=== PATIENT | female | born 1945 | race Caucasian/White ===

== ENCOUNTER → 2025-08-31 10:13 | Outpatient (REF) | payer MEDICARE, SELFPAY ==
[2025-08-31 11:03] LABS: Hematocrit 40.0 % (37.0-47.0); Hemoglobin 13.1 g/dL (12.0-16.0); Mean Corp Hgb Conc. 32.8 g/dL (33.0-37.0); Mean Corpuscular Volume 90.1 fL (81.0-99.0); Nucleated Red Blood Cells % 0 %; Platelet Count 277 10^3/uL (130-400); Red Cell Dist. Width 13.4 % (11.5-14.5)
[2025-08-31 11:17] LABS: INR 1.17; PT 15.2 Sec (11.4-14.6)
[2025-08-31 11:45] LABS: ALT (SGPT) 16 U/L (0-35); AST (SGOT) 21 U/L (14-36); Albumin 4.1 g/dl (3.5-5.0); Alkaline Phosphatase 59 U/L (38-126); Blood Urea Nitrogen 15 mg/dl (7-17); Calcium 9.1 mg/dl (8.4-10.2); Carbon Dioxide 31 mmol/L (22-30); Chloride 108 mmol/L (98-107); Glucose 85 mg/dl (70-99); Magnesium 2.1 mg/dl (1.6-2.3); Potassium 4.3 mmol/L (3.5-5.1); Sodium 143 mmol/L (135-145); Total Protein 6.7 g/dl (6.3-8.2); eGFR > 60.00
== END ==
LOC: SDSPAT 10:13
PROVIDERS: ATTENDING PHYSICIAN Internal Medicine Cardiovascular Disease; FAMILY PHYSICIAN Family Medicine; OTHER PHYSICIAN Internal Medicine
DX: I48.0 Paroxysmal atrial fibrillation (principal)
CPT/HCPCS: 36415; 75572; 80053; 83735; 85025; 85610; 86850; 86900; 86901; 93005; Q9967

== ENCOUNTER 2025-09-07 07:01 | Day surgery (SDC) | payer MEDICARE, SELFPAY ==
[2025-08-31 10:31] VITALS: BMI 27.9
--- NOTE | 2025-09-01 13:29 | W.PN.UPDATE ---
Update Note
Progress Note Update
CT: 2 pulmonary nodules are demonstrated measuring up to 3.7 mm. --Dr Tushar Davis and patient made aware
[2025-09-07] VITALS (22 sets, daily range): BP systolic 116–164; BP diastolic 56–74; BMI 27.9
[2025-09-07 08:59] LABS: ACT-LR - POC 213 Seconds (116-155)
--- NOTE | 2025-09-07 09:19 | ITS.CL.ABL ---
Paper Handler - Ablation
Ablation
Procedure Report:
ELECTROPHYSIOLOGY ABLATION STUDY
DATE:: September 07, 2025�����������������������������REFERRING: Dr. Fredi Mccabe
INDICATION: Paroxysmal supraventricular tachycardia in the form of atrial fibrillation.� As above
HISTORY: See H and P.��As above
ANTIARRHYTHMIC DRUG: Metoprolol
PRE-PROCEDURE ISAIAH: No atrial thrombus on intracardiac ultrasound
PRESENTING RHYTHM: Sinus bradycardia
'TIME-OUT':��called and confirmed.
SEDATION/ANESTHESIA:��provided via the anesthesia department using general anesthesia (LMA).
INTRAVENOUS/ARTERIAL ACCESS:
Right femoral venous - 8Fr
Left femoral venous - 8 Fr, 6 Fr
[id number] suture bilaterally
Ultrasound guidance for bilateral femoral vein access was utilized by me to obtain access with demonstration of normal anatomy
CHADS-VASC Score:
HAS-Bled Score
PROCEDURE:
1.��A decapolar CS catheter was placed within the CS for mapping and pacing.��This was also used as the reference catheter for the 3-D map.
2. The intracardiac ultrasound catheter was positioned in the RA to identify the FO for targeting of transseptal puncture, assist��in identification of the pulmonary vein ostia, monitoring pre and post ablation pulmonary vein flow velocities,
monitoring for 'bubble' formation during RF application as a sign of thermal injury,��and to monitor for pericardial effusion during mapping and ablation procedure.���Left atrial size, LV ejection fraction, and pulmonary vein flows were monitored
pre and post ablation procedure. The other valves were inspected and found to be free of significant regurgitation or stenosis.
3.��Half of the calculated heparin bolus was administered prior to the first transeptal puncture.��Transseptal puncture was performed to diagnose RA and LA pressure so that safetey of LA mapping and ablation could be further assessed, and to access
the left atrium and pulmonary veins for mapping and ablation.��This entailed advancing an 16.8 Syriac RF wire, sheath with dilator into the superior vena cava and withdrawing both (monitoring intracardiac ultrasound, fluoroscopy and tip pressure)
with the tip oriented toward the atrial septum.��The fossa ovalis was engaged (indicated by sudden displacement of the sheath tip as well as tenting of the fossa seen on intracardiac ultrasound).��Left atrial access required a pass with the
Brockenbrough needle extended.��Left atrial catheter position was confirmed by pressure monitoring (RA mean pressure 0 mm Hg and LA mean presure 2 mm Hg final pressure 10 mmHg after 1 L of fluid hydration), LA saturation (99%),��as well as
fluoroscopy.��The sheath was advanced over the dilator and positioned in the left atrium.��The remainder of the calculated heparin bolus was administered and heparin was
infused to maintain ACT at 300 -350 seconds throughout the case.
4.��RA pacing was performed via the proximal decapolar poles and LA pacing was performed via the distal decapolr poles.
5. A quadrapolar catheter was first positioned at the His position for His Bundle recording which was tagged via the 3-D Navex sytem, and then passed to the RVA for RV pacing and recording.
6. The Penta spline and grid were placed in each of the LIPV, LSPV, RSPV and the RIPV.��
7.��Next, a 3-D map was created using Navex.���A 3-D reconstructed CT image was compared to the 3-D Navex map to assist in anatomic interpretation, mapping and ablation.��The CT image and the NavX image were fused.
8. A total of 50 lesions were given. Pulmonary vein isolation with entrance and exit block was achieved with all of in basket poses. Flower post was given to the roof posterior wall and floor of the left atrium rendering the roof posterior wall
and floor of the left atrium with entrance and exit block. EP study post ablation did not demonstrate any inducible tachyarrhythmia.
9. Normal sinus node and AV mehrdad function noted.
TOTAL FLOURO TIME: 9.1 minutes 110 mGy
TOTAL RF DURATION: 0 minutes
REVERSAL OF HEPARIN: 35 mg of protamine, slow IV administration
COMPLICATIONS:
None
Intracardiac US shows no pericardial effusion post ablation.
SUMMARY:��
Complex left atrial mapping and ablation.
Pulmonary vein isolation and posterior wall isolation as above.
RECOMMENDATIONS:
1. Admit to monitored bed.
2. Resume anticoagulation
3.��Out of bed 4 hours
4.��Consider lowering or discontinuation of metoprolol
Copy to: Dr. Fredi Mccabe at [facility]
--- NOTE | 2025-09-07 10:50 | PTCARENOTE ---
Rec'd report from Rhea in EP lab; Rec'd pt drowsy but easily arousable, AAOX3 w/no c/o CP or SOB. Pt w/VSS w/HR in the 60's & BP 120/56, HR 50's-60's. Pt is 96-98% on 2L via NC. Pt is SB/SR on telemetry monitoring. Pt's L groin site w/dressing C/D/I
w/no signs or symptoms of bleeding or hematoma. Pt's R groin site was oozing post procedure-manual pressure applied & dressing changed in EP lab. Dressing w/new oozing present. Dressing removed & manual pressure applied for 15 mins. No signs or
symptoms of active bleeding or hematoma. Fig of [address] Pt advised of bedrest restrictions. Pt verbalized her understanding. Pt w/call maradiaga within reach.
--- NOTE | 2025-09-07 11:45 | CM ---
Reviewed chart. Met with Mrs. Wright and her son to review discharge plans. She states prior to admission she resides alone in a first floor apartment with one step to enter. She states prior to admission she was independent with ambulation and
adls. She states she does not have any DME in the home. She states she has a prescription plan. The discharge plan is to return home when medically stable.
[2025-09-07] MEDS: ANESTHETIC LOZENGE 1 LOZENGE PO ×3 (12:06→22:33)
--- NOTE | 2025-09-07 14:10 | PTCARENOTE ---
Pt had continued oozing after fig of 8 suture clipped. Manual pressure applied for addtl 30 mins. Parts Exped[employer] PA's in to see pt. Lido injection to R groin & addtl 15 mins of manual pressure. Redressed w/sterile dressing & hemostasis pad. Sandbag placed
for 30 mins more.
--- NOTE | 2025-09-07 14:15 | W.PN.UPDATE ---
Update Note
Progress Note Update
CTSP re: right groin ooze. Right groin with sutures out approx 1 hour ago and continues to be oozy/bleeding, saturating several dressings, despite manual compression. Site is soft without ht, with bleeding noted. 6ml lidocaine 1% w/epinephrine
injected into surrounding tissue at site with near to immediate decrease in bleed. Manual pressure held for another 2 minutes, closure pad applied with gauze/tegaderm. Will remain on flat bedrest for another 1 hour before attempting to sit up. Pt
chuck procedure without complaint.
[2025-09-07] MEDS: ELIQUIS 5 MG PO (19:45)
[2025-09-07] MEDS: TOPROL XL 50 MG PO (19:45)
[2025-09-07] MEDS: LIPITOR 10 MG PO (22:31)
--- NOTE | 2025-09-07 23:33 | PTCARENOTE ---
Received pt at change of shift resting in bed. SR w/ PVC's on tele, HR in the 60's. pt denies any CP or SOB at this time. R and L groin sites C/D/I, no bleeding or hematoma noted at this time. pt c/o a sore throat. PRN lozenge administered per pt
request. Encouraged pt to call RN with any questions/concerns. Call maradiaga within reach.
[2025-09-08 03:18] VITALS: BP 122/57
[2025-09-08 04:23] LABS: Hematocrit 36.2 % (37.0-47.0); Hemoglobin 12.2 g/dL (12.0-16.0); Mean Corp Hgb Conc. 33.7 g/dL (33.0-37.0); Mean Corpuscular Volume 91.6 fL (81.0-99.0); Platelet Count 260 10^3/uL (130-400); Red Cell Dist. Width 13.9 % (11.5-14.5)
[2025-09-08 04:42] LABS: Blood Urea Nitrogen 21 mg/dl (7-17); Calcium 8.8 mg/dl (8.4-10.2); Carbon Dioxide 27 mmol/L (22-30); Chloride 108 mmol/L (98-107); Estimated Creatinine Clearance 60 ml/min; Glucose 140 mg/dl (70-99); Magnesium 2.1 mg/dl (1.6-2.3); Potassium 4.9 mmol/L (3.5-5.1); Sodium 140 mmol/L (135-145); eGFR > 60.00
--- NOTE | 2025-09-08 07:39 | W.PN.CARDCBS ---
Addendum entered and electronically signed by Ruslan Angelo MD 09/08/25 08:31:
patient seen and examined
agree with TERRITORY MANAGER GENERAL SAL[employer] note and assessment
agree with [employer]ERRITORY MANAGER [employer] plan
exam:
Heent NCAT
JVP 6
Cor regular
lungs ctab
abd soft nt nd
no ext edema
aao x3
non focal access sites without hematoma/ooze
IMPRESSION:
PAF
s/p PFA, 09/07/25
HLD
HTN
PLAN:
Tele- NSR, no arrhythmia
Resumed eliquis last evening
continue metoprolol as before
followup with Dr. Mccabe 2-3 months as scheduled-communicated details of procedure to him
home today
Original Note:
Today's Communication / Plan
-
home today
Impression / Plan
-
PCP: Wu Davis MD
CDY: Fredi Mccabe MD
80 y/o, recurrent symptomatic AFib with associated palpitations, LH, dizziness. [id number], maintained on eliquis.
S/P PFA. Right groin post suture removal with oozing, injected with Lidocaine 1% w/Epi, excellent hemostasis.
IMPRESSION:
PAF
s/p PFA, 09/07/25
HLD
HTN
PLAN:
Tele- NSR, no arrhythmia
Resumed eliquis last evening
continue metoprolol as before
R groin site stable post injection, no further oozing/bleeding
followup with Dr. Mccabe 2-3 months as scheduled
home today
Progress Note - Overlocker
Subjective
Date of Service: September 08, 2025
Denies cp/palps/dypsnea
oob ambulating
groin sites without pain
Objective
Labs:
09/08/25 03:30
09/08/25 03:30
Labs
Hgb 12.2 g/dL (12.0-16.0) 09/08/25 03:30
Hct 36.2 % (37.0-47.0) L 09/08/25 03:30
Plt Count 260 10^3/uL (130-400) 09/08/25 03:30
Sodium 140 mmol/L (135-145) 09/08/25 03:30
Potassium 4.9 mmol/L (3.5-5.1) 09/08/25 03:30
BUN 21 mg/dl (7-17) H 09/08/25 03:30
Creatinine 0.8 mg/dL (0.6-1.0) 09/08/25 03:30
Glucose 140 mg/dl (70-99) H 09/08/25 03:30
Vital Signs and I&O:
Vital Signs
Temp Pulse Resp BP Pulse Ox
98.0 F 59 18 122/57 92
09/08/25 03:18 09/08/25 06:00 09/08/25 03:18 09/08/25 03:18 09/08/25 03:18
Vital Signs
Temp Pulse Resp BP Pulse Ox
98.0 F 59 18 122/57 92
09/08/25 03:18 09/08/25 06:00 09/08/25 03:18 09/08/25 03:18 09/08/25 03:18
Intake & Output
09/06/25 09/07/25 09/08/25 09/09/25
06:59 06:59 06:59 06:59
Intake Total 2980 / 2980
Output Total 100 / 100
Balance 2880 / 2880
Physical Exam
Physical Exam
AAOx3, MAEE 5/5
RRR S1 S2 no murmurs
CTA bilat, non labored
soft abd, + bs
bilat groin sites without ht/bleeding, soft, non tender
bilat extremities w/palpable distal pulses, no edema
[2025-09-08 08:15] VITALS: BP 136/78
--- NOTE | 2025-09-08 08:21 | W.DS.TRANS ---
DC Summary - Balance Staff Inspector
-
Discharge Instructions:
Sleep Apnea Risk Intermediate
Discharge Diagnosis/Procedures Atrial fibrillation post ablation
Diet Low Cholesterol
Driving Restrictions No driving for 24 hours
Instructions:
Stand-Alone Forms: DC Instructions- Cath/EP Lab
Changes to Home Medications: No
Discharge Medications:
DC Medications w/original date entered in [employer]
apixaban 5 mg tablet (Eliquis) 5 mg PO BID 08/26/25
metoprolol succinate 50 mg tablet,extended release 24 hr 50 mg PO BID 08/26/25
xczthvun-guj-diwhl ac 400 mcg-calcium carb 500 mg-vit K1 20 mcg tablet (Women's 50 Plus Multivitamin) 1 tab PO DAILY 08/26/25
simvastatin 20 mg tablet 20 mg PO HS 08/26/25
Home Medication Changes
Pending Results: No
--- NOTE | 2025-09-08 08:40 | CM ---
Reviewed chart. Met with Mrs. Wright to review discharge plans. She states she is feeling well and maybe able to go home soon. Prior to admission she resides alone in a first floor apartment with one step to enter. Prior to admission she was
independent with ambulation and adls. She does not have any DME in the home. She states she has a prescription plan. The discharge plan is to return home when medically stable.
--- NOTE | 2025-09-08 08:56 | PTCARENOTE ---
Assumed care of pt from prev nsg shift; Pt AAOX3 w/no c/o CP or SOB. Pt w/VSS w/HR in the 80's & BP 136/78. Pt is SR w/occas PVC's on telemetry monitoring. Pt's L groin site w/dressing C/D/I w/no signs or symptoms of bleeding or hematoma. Pt's R
groin site ecchymotic w/sm area of old drainage present; No signs or symptoms of active bleeding or hematoma. Pt w/no addtl needs at this time. Call maradiaga within reach.
[2025-09-08] MEDS: ELIQUIS 5 MG PO (09:07)
[2025-09-08] MEDS: TOPROL XL 50 MG PO (09:07)
--- NOTE | 2025-09-08 09:45 | PTCARENOTE ---
Pt's IV line & quality assurance monitor body D/C'd; D/C instructions discussed w/pt. Pt escorted out via wheelchair w/her son driving her home. Pt left w/personal belongings including cell phone, tablet, & chargers.
== END 2025-09-08 09:50 | disposition home or self-care (01) ==
LOC: CATH 07:01
PROVIDERS: Nurse Practitioner Adult Health; ATTENDING PHYSICIAN Internal Medicine Cardiovascular Disease; FAMILY PHYSICIAN Family Medicine; OTHER PHYSICIAN Internal Medicine
DX: I48.0 Paroxysmal atrial fibrillation (principal); E78.5 Hyperlipidemia, unspecified; I11.9 Hypertensive heart disease without heart failure; Z79.899 Other long term (current) drug therapy; Z79.01 Long term (current) use of anticoagulants; Z90.49 Acquired absence of other specified parts of digestive tract; Z88.2 Allergy status to sulfonamides; Z98.51 Tubal ligation status
CPT/HCPCS: C1769; C1892; C1759; C1730; 80048; 83735; 85027; 85347; 86900; 86901; 93005; 93656; 93657; C1732; C1733; C1766; C1894